=== PATIENT | male | born 1960 | race Caucasian/White ===

== ENCOUNTER 2020-12-19 03:08 | Emergency (ER) | payer MEDICAID ==
[~2020-12-19] VITALS: Ht 188 cm; Wt 106.6 kg
[2020-12-19 03:16] VITALS: BP 154/93
--- NOTE | 2020-12-19 03:16 | NUR ---
TO BED AMBULATORY
--- NOTE | 2020-12-19 03:27 | NUR ---
Lab at bedside.
--- NOTE | 2020-12-19 03:30 | NUR ---
60 y/o BIBA c/o chest pain and SOB that worsens when he trys to sleep. Pt states he has not been able to sleep in days d/t every time he lays down he feels like he can't breath. PT A/O x 4. RR even and unlabored. Oxygen level 94% on Room Air. Lung sounds BL clear throughout. Skin pink, warm , dry and intact. Cap refil < 3 sec. No JVD present. No edema noted. Pt resting in bed, locked and in lowest position, HOB elevated , side rail x2 for pt safety. Pt connected to groundwater monitoring technician, pulse ox and bp cuff. VSS. No acute distress noted. PMH: COPD, CHF, DM RENAL FAILURE, AFIB, PACEMAKER, HIGH CHOLESTEROL NKA
[2020-12-19 03:36] LABS: BASOPHILS # (AUTO) 0.1 K/uL (0.00-0.22); BASOPHILS % (AUTO) 1.2 % (0.0-2.0); EOSINOPHILS # (AUTO) 0.2 K/uL (0-0.4); HEMATOCRIT 36.5 % (36-52); HEMOGLOBIN 12.2 g/dL (12.0-18.0); LYMPHOCYTES # (AUTO) 1.4 K/uL (2.0-11.5); LYMPHOCYTES % (AUTO) 14.4 % (20.5-51.1); MEAN CORPUSCULAR HEMOGLOBIN 29 pg (27-31); MEAN CORPUSCULAR HGB CONC 33 g/dL (33-37); MEAN CORPUSCULAR VOLUME 86.5 fL (80-94); MONOCYTES # (AUTO) 0.6 K/uL (0.8-1.0); NEUTROPHILS # (AUTO) 7.3 K/uL (1.8-7.7); NEUTROPHILS % (AUTO) 76.4 % (42.2-75.2); PLATELET COUNT (AUTO) 221 K/uL (140-450); RED BLOOD CELL COUNT(AUTO) 4.23 MIL/uL (4.20-6.10); RED CELL DISTRIBUTION WIDTH 14.6 % (11.6-13.7); WHITE BLOOD COUNT (AUTO) 9.5 K/uL (4.8-10.8)
--- NOTE | 2020-12-19 03:52 | NUR ---
ERMD at bedside for medical evaluation
[2020-12-19 03:55] LABS: PROTHROMBIN TIME 10.2 secs (10.8-13.4)
--- NOTE | 2020-12-19 03:55 | NUR ---
Pt states he is feeling much better and is not currently having any SOB or chest pain. Lights have been dimmed for pt comfort, bed locked and in lowest position. VSS. No acute distress noted.
--- NOTE | 2020-12-19 05:05 | NUR ---
ERMD made aware of pt's elevated HR and BP - Per ERMD administered 2nd EKG.
[2020-12-19 05:24] LABS: ANION GAP 15.3 (8-16); CREATININE 1.3 mg/dL (0.6-1.3); POTASSIUM 4.3 mmol/L (3.5-5.1)
--- NOTE | 2020-12-19 05:30 | NUR ---
CHIDI COLLECTED AND HANDED TO DARCY FROM LAB.
[2020-12-19 05:40] LABS: ALBUMIN 3.4 g/dL (3.4-5.0); BILIRUBIN,DIRECT 0.1 mg/dL (0.0-0.3); FREE T4 (FREE THYROXINE) 0.83 ng/dL (0.76-1.46); THYROID STIMULATING HORMONE 2.88 uIU/mL (0.34-3.74); TOTAL BILIRUBIN 0.5 mg/dL (0.0-1.0)
[2020-12-19] MEDS ORDERED: METOPROLOL 5 MG/5 ML VIAL IVP ONE (06:10)
[2020-12-19] MEDS ORDERED: ASPIRIN 81 MG TAB.CHEW PO ONE (06:20)
[2020-12-19] MEDS ORDERED: SPIR50TA PO (06:28)
[2020-12-19] MEDS ORDERED: [UNRECOGNIZED DRUG - CODE] IH (06:28)
[2020-12-19] MEDS ORDERED: DAPA5TAB PO (06:28)
[2020-12-19] MEDS ORDERED: ATOR40TA PO (06:28)
[2020-12-19] MEDS ORDERED: NITR0.4T2 SL (06:28)
[2020-12-19] MEDS ORDERED: CARV25TA PO (06:28)
[2020-12-19] MEDS ORDERED: TTS3 TD (06:28)
[2020-12-19] MEDS ORDERED: RIVA20TA PO (06:28)
[2020-12-19] MEDS ORDERED: QUET25TA PO (06:28)
[2020-12-19] MEDS ORDERED: ARIP5TAB61 PO (06:28)
[2020-12-19] MEDS ORDERED: FURO-570 PO (06:28)
[2020-12-19] MEDS ORDERED: METF1000 PO (06:28)
[2020-12-19] MEDS ORDERED: AMIO100T3 PO (06:28)
[2020-12-19] MEDS ORDERED: SACU1TAB PO (06:28)
[2020-12-19] MEDS ORDERED: BECL10.62 INH (06:28)
[2020-12-19] MEDS ORDERED: ASPI-1822 PO (06:28)
[2020-12-19] MEDS ORDERED: METOPROLOL 25 MG TAB PO ONE (06:40)
--- NOTE | 2020-12-19 06:50 | NUR ---
Pt ambulated from restroom w/ steady gait.
--- NOTE | 2020-12-19 06:55 | NUR ---
Pt reconnected to cardiac exercise specialist, pulse ox and bp cuff. Pt provided w/ blanket for comfort. VSS. No acute distress noted.
--- NOTE | 2020-12-19 07:09 | NUR ---
REPORT GIVEN TO ARLINE LOUIS FOR TRANSFER OF CARE.
--- NOTE | 2020-12-19 07:09 | NUR ---
Report and continuation of care received from ARLINE Lebron.
--- NOTE | 2020-12-19 07:15 | NUR ---
Patient resting in position of comfort; sitting upright in bed. Patient reports SOB upon movement/exertion. SpO2 97% on room air. septic tank setter remains in place. Bed locked in lowest position, side rails x 1, call light in reach.
--- NOTE | 2020-12-19 08:17 | NUR ---
Patient ambulated to restroom with steady/even gait.
--- NOTE | 2020-12-19 08:20 | NUR ---
Patient resting in position of comfort; sitting upright in bed. Patient reports SOB upon movement/exertion. SpO2 98% on room air. equipment monitor phototypesetting remains in place. Bed locked in lowest position, side rails x 1, call light in reach.
--- NOTE | 2020-12-19 08:29 | NUR ---
Patient to be transferred to [facility]. Is being transferred due to higher level of care. Receiving facility has accepting physician and available space. ER physician has signed transfer form. Patient or responsible constitution party has agreed to transfer and signed form. Patient belongings inventoried and will be sent with patient. Copy of nursing notes, lab reports, EKG, Physicians Orders and X-rays to be sent with patient. Report called to ARLINE Klein at receiving facility. [facility] ambulance service has been called for transfer. ETA is 45-60 minutes.
--- NOTE | 2020-12-19 08:34 | NUR ---
Report given to ARLINE Klein at [facility]. All questions answered and ETA provided.
--- NOTE | 2020-12-19 09:05 | NUR ---
Patient ambulated to restroom; states "watery diarrhea."
--- NOTE | 2020-12-19 09:18 | NUR ---
2 milk and 2 cranberry juices provided per pt request.
--- NOTE | 2020-12-19 09:24 | NUR ---
[facility] AT BEDSIDE FOR TRANSFER OF PATIENT
[2020-12-19 09:28] VITALS: BP 143/103
== END 2020-12-19 09:24 | disposition short-term general hospital (02) ==
LOC: MED 03:08
DX: R07.9 Chest pain, unspecified (principal); R06.02 Shortness of breath; R79.89 Other specified abnormal findings of blood chemistry; I48.91 Unspecified atrial fibrillation; Z79.899 Other long term (current) drug therapy; Z20.822 Contact with and (suspected) exposure to COVID-19
CPT/HCPCS: 36415; 71045; 80048; 80076; 80162; 83880; 84439; 84443; 84484; 85025; 85379; 85610; 85730; 87426; 93005; 96374; 99291; J3490

== ENCOUNTER 2021-02-10 00:50 | Emergency (ER) | payer MEDICAID ==
[~2021-02-10] VITALS: Ht 188 cm; Wt 102.1 kg
[2021-02-10 00:50] VITALS: BP 148/104
[~2021-02-10 00:50] MED LIST: AMIO100T3 PO; ARIP5TAB61 PO; ASPI-1822 PO; ATOR40TA PO; BECL10.62 INH; CARV25TA PO; DAPA5TAB PO; FURO-570 PO; METF1000 PO; NITR0.4T2 SL; QUET25TA PO; RIVA20TA PO; SACU1TAB PO; SPIR50TA PO; TTS3 TD; [UNRECOGNIZED DRUG - CODE] IH
[2021-02-10 01:43] LABS: BASOPHILS % (AUTO) 0.4 % (0.0-2.0); EOSINOPHILS # (AUTO) 0.2 K/uL (0-0.4); EOSINOPHILS % (AUTO) 1.4 % (0.0-4.0); HEMATOCRIT 35.5 % (36-52); HEMOGLOBIN 11.6 g/dL (12.0-18.0); LYMPHOCYTES # (AUTO) 1.3 K/uL (2.0-11.5); LYMPHOCYTES % (AUTO) 10.7 % (20.5-51.1); MEAN CORPUSCULAR HEMOGLOBIN 28 pg (27-31); MEAN CORPUSCULAR HGB CONC 33 g/dL (33-37); MONOCYTES # (AUTO) 1.1 K/uL (0.8-1.0); MONOCYTES % (AUTO) 9.3 % (1.7-9.3); NEUTROPHILS # (AUTO) 9.1 K/uL (1.8-7.7); NEUTROPHILS % (AUTO) 78.2 % (42.2-75.2); PLATELET COUNT (AUTO) 201 K/uL (140-450); RED BLOOD CELL COUNT(AUTO) 4.18 MIL/uL (4.20-6.10); RED CELL DISTRIBUTION WIDTH 16.5 % (11.6-13.7); WHITE BLOOD COUNT (AUTO) 11.7 K/uL (4.8-10.8)
[2021-02-10 01:52] LABS: ANION GAP 17.4 (8-16); CREATININE 1.4 mg/dL (0.6-1.3); POTASSIUM 4.4 mmol/L (3.5-5.1)
[2021-02-10] MEDS: FUROSEMIDE 40 MG/4 ML VIAL IVP ONE (01:52)
[2021-02-10 01:58] LABS: ALBUMIN 3.2 g/dL (3.4-5.0)
[2021-02-10] MEDS: ONDANSETRON 4 MG/2 ML VIAL IVP ONE (02:39)
[2021-02-10] MEDS: ENALAPRILAT 2.5 MG/2 ML VIAL IVP ONE (03:01)
[2021-02-10] MEDS ORDERED: ONDA8TAB87 PO (03:27)
[2021-02-10 03:35] VITALS: BP 138/78
== END 2021-02-10 03:35 | disposition home or self-care (01) ==
LOC: MED 00:50
DX: R06.02 Shortness of breath (principal); R11.0 Nausea; F41.1 Generalized anxiety disorder; J44.9 Chronic obstructive pulmonary disease, unspecified; E11.9 Type 2 diabetes mellitus without complications; I11.9 Hypertensive heart disease without heart failure; Z95.1 Presence of aortocoronary bypass graft; Z79.899 Other long term (current) drug therapy
CPT/HCPCS: 36415; 71045; 80053; 83880; 84484; 85025; 93005; 96374; 96375; 99285; J1940; J2405; J3490

== ENCOUNTER 2021-03-12 09:55 | Emergency (ER) | payer MEDICAID ==
[~2021-03-12] VITALS: Ht 188 cm; Wt 106.6 kg
[~2021-03-12 09:55] MED LIST changes: +ONDA8TAB87 PO
[2021-03-12 10:01] VITALS: BP 153/115
--- NOTE | 2021-03-12 10:07 | NUR ---
PT MOVED TO BED 11 BY EMS.
--- NOTE | 2021-03-12 10:18 | NUR ---
60/M biba from [facility] with c/o rectal bleeding. Patient states he has had 10/10 rectal pain for one day and states he noticed blood this morning. Denies injury or trauma, states pain is non radiating, denies taking anything for pain prior to arrival to ED. Patient denies abdominal pain, nausea, vomiting, dysuria or hematuria.
--- NOTE | 2021-03-12 11:55 | NUR ---
Urine collected and handed to blender laborer.
[2021-03-12 12:47] LABS: BARBITURATE, URINE NEGATIVE ng/ml (NEG <=200); BENZODIAZEPINE, URINE NEGATIVE ng/mL (NEG <=200); CANNABINOID, URINE NEGATIVE ng/mL (NEG <=50); COCAINE, URINE NEGATIVE ng/mL (NEG <=300); OPIATE, URINE NEGATIVE ng/mL (NEG <=2000); PHENCYCLIDINE SCREEN,URINE NEGATIVE ng/mL (NEG <=25)
[2021-03-12 12:49] LABS: BASOPHILS % (AUTO) 0.5 % (0.0-2.0); EOSINOPHILS # (AUTO) 0.2 K/uL (0-0.4); EOSINOPHILS % (AUTO) 1.9 % (0.0-4.0); HEMATOCRIT 34.6 % (36-52); HEMOGLOBIN 11.2 g/dL (12.0-18.0); LYMPHOCYTES # (AUTO) 1.5 K/uL (2.0-11.5); MEAN CORPUSCULAR HEMOGLOBIN 27 pg (27-31); MEAN CORPUSCULAR HGB CONC 32 g/dL (33-37); MEAN CORPUSCULAR VOLUME 83.7 fL (80-94); MONOCYTES # (AUTO) 1.1 K/uL (0.8-1.0); MONOCYTES % (AUTO) 12.5 % (1.7-9.3); NEUTROPHILS # (AUTO) 6.3 K/uL (1.8-7.7); NEUTROPHILS % (AUTO) 69.1 % (42.2-75.2); PLATELET COUNT (AUTO) 187 K/uL (140-450); RED BLOOD CELL COUNT(AUTO) 4.13 MIL/uL (4.20-6.10); RED CELL DISTRIBUTION WIDTH 16.6 % (11.6-13.7); WHITE BLOOD COUNT (AUTO) 9.1 K/uL (4.8-10.8)
[2021-03-12 12:50] LABS: ALBUMIN 3.7 g/dL (3.4-5.0); ANION GAP 13.4 (8-16); CARBON DIOXIDE 24.3 mmol/L (21-32); CREATININE 1.3 mg/dL (0.6-1.3); POTASSIUM 3.7 mmol/L (3.5-5.1); TOTAL BILIRUBIN 0.7 mg/dL (0.0-1.0)
--- NOTE | 2021-03-12 13:35 | NUR ---
Patient discharged with v/s stable. Written and verbal after care instructions given about stimulant use disorder-amphethamines, and rectal bleeding and explained. Patient verbalized understanding. Ambulatory with steady gait. All questions addressed prior to discharge. Advised to follow up with PMD.
[2021-03-12 13:36] VITALS: BP 158/114
== END 2021-03-12 13:35 | disposition home or self-care (01) ==
LOC: MED 09:55
DX: F15.90 Other stimulant use, unspecified, uncomplicated (principal); R00.0 Tachycardia, unspecified; J44.9 Chronic obstructive pulmonary disease, unspecified; E11.9 Type 2 diabetes mellitus without complications; I10 Essential (primary) hypertension; Z95.0 Presence of cardiac pacemaker; Z90.49 Acquired absence of other specified parts of digestive tract; Z98.890 Other specified postprocedural states; Z79.84 Long term (current) use of oral hypoglycemic drugs; Z79.899 Other long term (current) drug therapy; Z79.82 Long term (current) use of aspirin
CPT/HCPCS: 36415; 80053; 80305; 85025; 85610; 85730; 93005; 99285

== ENCOUNTER 2021-03-18 12:01 | Emergency (ER) | payer MEDICAID ==
[~2021-03-18] VITALS: Ht 188 cm; Wt 99.8 kg
--- NOTE | 2021-03-18 12:04 | NUR ---
PT W/C ASSISTED TO BED 10
[2021-03-18 12:06] VITALS: BP 97/69
--- NOTE | 2021-03-18 12:29 | NUR ---
60 Y/O MALE C/O SOB XTODAY WITH FAST HEART RATE. STATED RECENTLY WAS RECENTLY ADMITTED TO [facility] ON 03/15/21 AND DC'D LAST NIGHT, PT STATES HE WAS HOSPITALIZED FOR HEART FAILURE. DENIES LOC, FEVER, CHILLS, AND PAIN AT THIS TIME. PT LUNG SOUNDS CLEAR THROUGHOUT, IN TRIPOD POSITION, GRUNTING. PLACED ON MONITOR FOR CARDIAC AND O2 MONITORING; O2 SAT 96%, RR 12, HR 102. PLACED ON 2L/O2 VIA N/C. A&OX4, GCS 15. MEDHX: AFIB, CONGENITAL HEART FAILURE, ESRD STAGE 3, COPD, DM NKA
[2021-03-18 12:36] LABS: BASOPHILS # (AUTO) 0.1 K/uL (0.00-0.22); BASOPHILS % (AUTO) 0.8 % (0.0-2.0); EOSINOPHILS # (AUTO) 0.2 K/uL (0-0.4); EOSINOPHILS % (AUTO) 1.6 % (0.0-4.0); HEMOGLOBIN 12.5 g/dL (12.0-18.0); LYMPHOCYTES # (AUTO) 1.5 K/uL (2.0-11.5); LYMPHOCYTES % (AUTO) 15.2 % (20.5-51.1); MEAN CORPUSCULAR HEMOGLOBIN 27 pg (27-31); MEAN CORPUSCULAR HGB CONC 33 g/dL (33-37); MEAN CORPUSCULAR VOLUME 82.7 fL (80-94); MONOCYTES # (AUTO) 0.9 K/uL (0.8-1.0); MONOCYTES % (AUTO) 9.5 % (1.7-9.3); NEUTROPHILS # (AUTO) 7.1 K/uL (1.8-7.7); NEUTROPHILS % (AUTO) 72.9 % (42.2-75.2); PLATELET COUNT (AUTO) 242 K/uL (140-450); RED BLOOD CELL COUNT(AUTO) 4.59 MIL/uL (4.20-6.10); RED CELL DISTRIBUTION WIDTH 16.2 % (11.6-13.7); WHITE BLOOD COUNT (AUTO) 9.7 K/uL (4.8-10.8)
[2021-03-18 12:51] LABS: ALBUMIN 3.3 g/dL (3.4-5.0); CARBON DIOXIDE 28.8 mmol/L (21-32); CREATININE 1.3 mg/dL (0.6-1.3); POTASSIUM 4.8 mmol/L (3.5-5.1); TOTAL BILIRUBIN 0.4 mg/dL (0.0-1.0)
--- NOTE | 2021-03-18 13:44 | NUR ---
Patient discharged with v/s stable. Written and verbal after care instructions given and explained. Patient verbalized understanding. Ambulatory with steady gait. All questions addressed prior to discharge. Advised to follow up with PMD.
[2021-03-18 13:49] VITALS: BP 105/66
== END 2021-03-18 13:44 | disposition home or self-care (01) ==
LOC: MED 12:01
DX: I50.9 Heart failure, unspecified (principal); R06.02 Shortness of breath; F15.90 Other stimulant use, unspecified, uncomplicated; I11.0 Hypertensive heart disease with heart failure; E11.9 Type 2 diabetes mellitus without complications; Z90.49 Acquired absence of other specified parts of digestive tract; Z98.890 Other specified postprocedural states; Z79.899 Other long term (current) drug therapy; Z79.82 Long term (current) use of aspirin; Z95.0 Presence of cardiac pacemaker
CPT/HCPCS: 71045; 80053; 83880; 84484; 85025; 93005; 99285